=== PATIENT | female | born 1955 | race Caucasian/White ===

== ENCOUNTER 2024-06-20 12:59 | Outpatient (REF) | payer MEDICARE, MEDICAID, SELFPAY ==
--- NOTE | 2024-06-20 14:47 | MHC.AU.HA1 ---
Hearing Aid Evaluation Date of Visit: 06/20/24 Historical Information: Description of Hearing: Within normal sloping to severe sensorineural hearing loss, bilaterally Summary: Accompanied by friend, Stevie. Hearing test and medical clearance from [facility]. Hearing aids recommended over 10 years ago but not ready to pursue amplification at that time. Now hearing loss starting to affect daily interactions more - constantly asking for repetition, missing parts of conversations, difficulty distinguishing sounds, tv volume elevated. Discussed styles and manufacturers. Wants rechargeable, prefers primer charger with lid (previously had a cat who recently , thinking of getting another one). Ultimately opted for Oticon, knowing standard primer charger does not have lid. If she decides to get new cat, she will consider purchasing a SmartCharger at that time. Hearing Aid Prescription: Based on the individual?s shared listening needs, communication environments, dexterity, desire for connectivity, and personal preferences, the following prescription for amplification has been made: Right ear: Make, Model, Color: Oticon Intent 2 miniRITE-R Color: Chroma Beige Battery Size: Rechargeable Joinery Patternmaker/Slim Tube: Type of Earmold/Dome/CShell/SlimTip: 6mm double dyson dome Left ear: Left ear prescription to be same as Right Hearing Aid above: Make, Model, Color: Oticon Intent 2 miniRITE-R Color: Chroma Beige Battery Size: Rechargeable Joinery Patternmaker/Slim Tube: 185 Type of Earmold/Dome/CShell/SlimTip: 6mm double dyson dome Accessories/Assistive Technology: Technical Artist Plan of Care: Patient wishes to purchase hearing aids as prescribed Action Taken/Action Needed: Hearing Instrument Fitting to be scheduled when materials arrive Primary Diagnosis: H90.3 Bilateral Sensorineural Hearing Loss Signature: Provider: Golden Del Rio, [facility]
== END 2024-06-20 13:00 | disposition home or self-care (01) ==
LOC: HO.HAP 12:59
PROVIDERS: Visit Provider Otolaryngology
DX: Z46.1 Encounter for fitting and adjustment of hearing aid (principal); H90.3 Sensorineural hearing loss, bilateral
CPT/HCPCS: 92591

== ENCOUNTER 2024-07-05 12:53 | Outpatient (REF) | payer MEDICARE, MEDICAID, SELFPAY ==
--- NOTE | 2024-07-05 14:03 | MHC.AU.HA2 ---
Hearing Instrument Fitting- Adult- Binaural Date of Visit: 07/05/24 Hearing Instruments Dispensed: Right Ear: Make, Model, Color, Serial Number: Oticon Intent 2 miniRITE-R SN: [id number] Color: Chroma Beige Barrel Rifler Hook Repair Warranty: 07/22/2027 Barrel Rifler Hook Loss and Damage Warranty: 07/22/2027 [facility] Service Plan: 07/05/2025 Battery Size: Rechargeable Clay Artist/Slim Tube: 2/85 Earmold/Dome/CShell/SlimTip: 8mm double dyson dome (no retention tail) Type of Wax Guard: miniFit Left Ear: Make, Model, Color, Serial Number: Oticon Intent 2 miniRITE-R SN: [id number] Color: Chroma Beige Barrel Rifler Hook Repair Warranty: 07/22/2027 Barrel Rifler Hook Loss and Damage Warranty: 07/22/2027 [facility] Service Plan: 07/05/2025 Battery Size: Rechargeable Clay Artist/Slim Tube: 2/85 Earmold/Dome/CShell/SlimTip: 8mm double dyson dome (no retention tail) Type of Wax Guard: miniFit Accessories/Assistive Technology: Management Trainee [employer] SN: [id number] Summary of Fitting: Accompanied by friend, Stevie. Ran feedback analyzer and real ear measures. Comfortable at real ear settings. Left LYNN intermittent at beginning of fitting, possibly due to gas operation manager not being pushed in tight enough. Denice will monitor and call if issue persists. Discussed care, use, and rechargeability including manually turning on/off. Practiced insertion and removal. Did not discuss changing domes and wax guards, VC use, or bluetooth/aidan at this time, will do at follow up. Explained acclimatization period and importance of daily, consistent use. Recommendations: A hearing instrument follow-up was scheduled. Diagnosis Code(s): Primary Diagnosis: H90.3 Bilateral Sensorineural Hearing Loss Signature: Provider: Golden Del Rio, [facility]
== END 2024-07-05 12:54 | disposition home or self-care (01) ==
LOC: HO.HAP 12:53
PROVIDERS: Visit Provider Otolaryngology
DX: Z46.1 Encounter for fitting and adjustment of hearing aid (principal); H90.3 Sensorineural hearing loss, bilateral
CPT/HCPCS: V5011; V5020; V5160; V5261

== ENCOUNTER 2024-07-19 13:44 | Outpatient (REF) | payer MEDICARE, MEDICAID, SELFPAY ==
--- NOTE | 2024-07-19 15:11 | MHC.AU.HA3 ---
Hearing Instrument Follow-Up- Binaural Date of Visit: 07/19/24 Right Ear: Make, Model, Color, Serial Number: Oticon Intent 2 miniRITE-R SN: [id number] Color: Chroma Beige Paving And Surfacing Labourer Repair Warranty: 07/22/2027 Paving And Surfacing Labourer Loss and Damage Warranty: 07/22/2027 [facility] Service Plan: 07/05/2025 Battery Size: Rechargeable Resident Physician/Slim Tube: 2/85 Earmold/Dome/CShell/SlimTip:6mm double dyson dome (no retention tail) Type of Wax Guard: miniFit Dispensed By: [facility] Date of Fittin07/05/2024 Left Ear: Make, Model, Color, Serial Number: Oticon Intent 2 miniRITE-R SN: [id number] Color: Chroma Beige Paving And Surfacing Labourer Repair Warranty: 07/22/2027 Paving And Surfacing Labourer Loss and Damage Warranty: 07/22/2027 [facility] Service Plan: 07/05/2025 Battery Size: Rechargeable Resident Physician/Slim Tube: 2/85 Earmold/Dome/CShell/SlimTip: 8mm double dyson dome (no retention tail) Type of Wax Guard: miniFit Dispensed By: [facility] Date of Fittin07/05/2024 Follow-Up Summary: Accompanied by friend, Stevie. Notices benefit from HAs but had a few concerns. 1. Right dome uncomfortable/painful - Switched to 6mm double dyson dome with improvement in comfort 2. Hearing all the soft sounds, leaves rustling, blinker in car, fridge door alarm - Explained she should be hearing those sounds, will take time to acclimate to them. 3. Stevie thinks she not hearing speech as well as she should be, often misses parts of words or start of conversations - Discussed realistic expectations of HAs, adjusted CRs as Stevie reported she hears distant sounds better than sounds close to her, increased noise management settings. Denice notes some of her hearing concerns/processing of information may relate to her current, high stress levels. Spent majority of appointment reviewing old audiograms, anatomy of ear, types of hearing loss at Denice's request. Did not have time to discuss VC use, changing domes/wax guards, bluetooth. Will do at additional follow up. Recommendations: An additional follow-up was scheduled to monitor progress. Diagnosis Code(s): Primary Diagnosis: H90.3 Bilateral Sensorineural Hearing Loss Signature: Provider: Golden Del Rio, [facility]
== END 2024-07-19 13:45 | disposition home or self-care (01) ==
LOC: HO.HAP 13:44
PROVIDERS: PCP Internal Medicine; Visit Provider Otolaryngology
DX: Z13.89 Encounter for screening for other disorder (principal)

== ENCOUNTER 2024-08-02 14:15 | Outpatient (REF) | payer MEDICARE, MEDICAID, SELFPAY | END 2024-08-02 14:16 | disposition home or self-care (01) | LOC: HO.HAP 14:15 | PROVIDERS: Visit Provider Student in an Organized Health Care Education/Training Program | DX: Z13.89 Encounter for screening for other disorder (principal) ==